=== PATIENT | male | born 1975 | race Caucasian/White ===

== ENCOUNTER 2021-06-10 12:23 | Emergency (ER) | payer BC, SELFPAY ==
[2021-06-10 12:24] VITALS: BP 149/102; PULSE 66; RESP 18; TEMP 36.2; O2SAT 95; BMI 31.7
--- NOTE | 2021-06-10 13:08 | RAD_ITS ---
STUDY: X-RAY - RIGHT ELBOW REASON FOR EXAM: Male, 46 years old. fall -- FALL ON THE ICE. SEVERE ELBOW PAIN TECHNIQUE: 2 view(s) of the elbow. COMPARISON: None. FINDINGS: Acute markedly comminuted nondisplaced fracture of the proximal metaphysis of the ulna just distal to the olecranon. Acute slightly distracted fracture of the anterior aspect of the radial head. Normal radiocapitellar and ulnotrochlear articulations. The soft tissue structures are unremarkable. RAD/Elbow 2 Views IMPRESSION: 1. Acute markedly comminuted fracture the proximal metaphysis of the ulna just distal to the olecranon. 2. Acute slightly distracted oblique fracture of the anterior aspect of the radial head appears Electronically Signed: Peter Rosa MD at 13:45 EST Tel , Service support ,
--- NOTE | 2021-06-10 13:08 | RAD_ITS ---
STUDY: X-RAY - RIGHT RADIUS AND ULNA REASON FOR EXAM: Male, 46 years old. fall, elbow pain TECHNIQUE: 2 view(s) of the forearm. COMPARISON: None. FINDINGS: There is no demonstrated soft tissue swelling. Acute slightly displaced oblique fracture of the anterior aspect of the radial head. Acute markedly comminuted fracture of the proximal metaphysis of the ulna just distal to the olecranon. RAD/Forearm 2 Views IMPRESSION: 1. Acute markedly comminuted fracture the proximal metaphysis of the ulna. 2. Acute slightly displaced oblique fracture the anterior aspect of the radial head. Electronically Signed: Peter Rosa MD at 13:46 EST Tel , Service support ,
[2021-06-10] MEDS: HYDROcodone Bitartrate/Apap 5/325 Tablet PO (13:33)
[2021-06-10] MEDS: morphine 10 MG/ML Syringe IM (14:30)
--- NOTE | 2021-06-10 15:43 | EDS_ITS ---
HPI History of Present Illness Chief Complaint: Fall Informant: patient Onset/Context/Timing Onset: Today Mechanism/Context: Fall Location of pain/injuries: Right elbow Current Severity: Moderate Maximum Severity: Moderate Narrative Narrative: Patient presents after fall at home. He fell on icy steps. His right elbow hit the edge of the steps. He has pain to the right elbow and forearm. He denies any other injury from the fall. He is right-hand dominant. PFSH PFSH no medical history Home Medications oxycodone-acetaminophen [Percocet] 1 tab PO Q4H PRN 5 Days #30 tab 06/10/21 [Rx Last Taken Unknown] Allergy/AdvReac Type Severity Reaction Status Date / Time No Known Allergies Allergy Verified 06/10/21 12:25 Social History Smoking Status: Never smoker ROS ROS ED Constitutional Constitutional ED: Denies chills or fever(s) Eyes Eyes: Denies change in vision ENT ENT ED: Denies sore throat Cardiovascular Cardiovascular: Denies chest pain Respiratory/Chest Respiratory/Chest: Denies cough or dyspnea Gastrointestinal Gastrointestinal: Denies abdominal pain, nausea or vomiting Genitourinary Genitourinary ED: Denies dysuria Musculoskeletal Musculoskeletal: Reports arthralgias; Denies back pain or neck pain Integumentary Denies rash Neurologic Neurologic: Denies headache(s), paresthesias or weakness Allergic/Immunologic Allergic/Immunologic ED: Denies urticaria EXAM Physical Exam Const Vital Signs: 06/10/21 12:24 06/10/21 13:25 Temperature 97.1 F L Temperature Source Temporal Pulse Rate 66 Respiratory Rate 18 Respiratory Effort Normal Respiratory Depth Normal Respiratory Pattern Normal Blood Pressure 149/102 H Blood Pressure Mean 117 Pulse Ox 95 Oxygen Delivery Method Room Air Room Air Positive well nourished and well developed General Appearance ED: well developed HEENT atraumatic Eyes PERRL and EOMs intact bilaterally Neck full ROM Chest Wall inspection of chest normal and palpation of chest normal Resp normal respiratory effort and clear to auscultation bilaterally Cardio regular rhythm Rate: regular rate GI non-tender Palpation: soft Extremity Extremity Narrative: Tenderness diffusely around the right elbow and proximal forearm. Palpable distal pulses with good cap refill and sensation. Able to wiggle fingers. No tenderness at the shoulder. Decreased range of motion at the elbow secondary to pain. Neuro oriented x3 Sensorium / Orientation: alert Psych mental status grossly normal Skin no rashes or lesions noted MDM MDM MDM Narrative Medical decision making narrative: Patient given [place] for pain. X-rays of the elbow and forearm obtained. Radiography Diagnostic Testing: Clinical Impression(s) from Imaging Studies Elbow X-Ray 06/10/21 13:08 IMPRESSION: 1. Acute markedly comminuted fracture the proximal metaphysis of the ulna just distal to the olecranon. 2. Acute slightly distracted oblique fracture of the anterior aspect of the radial head appears Electronically Signed: Peter Rosa MD at 13:45 EST Tel , Service support , Forearm X-Ray 06/10/21 13:08 IMPRESSION: 1. Acute markedly comminuted fracture the proximal metaphysis of the ulna. 2. Acute slightly displaced oblique fracture the anterior aspect of the radial head. Electronically Signed: Peter Rosa MD at 13:46 EST Tel , Service support , Treatment and Re-Evaluation Comments:: X-rays reveal proximal radius and ulna fracture. X-rays reviewed with the patient. Patient given IM morphine and sweatshirt able to be removed. Patient placed in a long posterior and sugar-tong Ortho-Glass splint. Following splint application patient has good cap refill distally can wiggle fingers. I spoke with Dr. Bart Acuña, on-call for orthopedics. He asked that the patient follow-up with Dr. Connelly as he has training in more high risk upper extremity injuries. Prescription for Percocet sent to the pharmacy. Return instructions provided. Discharge Plan Triage Chief Complaint: Fall ED Provider: Renae Cruz Dx/Rx/DC Orders Clinical Impression: Elbow fracture, right Instructions: ED Elbow Fracture Prescriptions: New oxycodone-acetaminophen [Percocet] 5-325 mg tablet 1 tab PO Q4H PRN (Reason: pain) 5 Days Qty: 30 RF: 0 Primary Care Provider: Care Physician,No Primary Referrals: Stan Connelly DO [STAFF PHYSICIAN] - 3-5 Days Care Physician,No Primary [Primary Care Provider] - Disposition Disposition: Home, Self Care Discharge Date/Time: 06/10/21 15:55
== END 2021-06-10 15:55 | disposition home or self-care (01) ==
PROVIDERS: Emergency Provider Emergency Medicine; Visit Provider Emergency Medicine
DX: S42.401A Unspecified fracture of lower end of right humerus, initial encounter for closed fracture (principal); W10.9XXA Fall (on) (from) unspecified stairs and steps, initial encounter
CPT/HCPCS: 29105; 73070; 73090; 96372; 99282

== ENCOUNTER 2021-06-14 07:33 | Outpatient (CLI) | payer BC, SELFPAY ==
--- NOTE | 2021-06-14 08:14 | CT_ITS ---
STUDY: CT SCAN UPPER EXTREMITY RIGHT REASON FOR EXAM: Male, 46 years old. PRE RADIATION DOSAGE (If Supplied By Facility): CTDIvol = ( 24.58 ) mGy, DLP = ( 431.54 ) mGycm. Individualized dose optimization techniques were used for this CT.? TECHNIQUE: Multiple axial tomographic images of the right elbow were obtained without intravenous contrast demonstration. Coronal and sagittal reconstructions obtained as well. COMPARISON: Comparison is made with prior radiographs dated genera 2021. FINDINGS: There is evidence of a comminuted nondisplaced fracture of the proximal metaphysis of the ulna just distal to the olecranon process of the ulna. There is also evidence of a slightly distracted fracture of the anterior aspect of the radial head. Diffuse soft tissue swelling and joint effusion. CT/Extremity Upper without Contra IMPRESSION: Comminuted nondisplaced fracture of the proximal metaphysis of the ulna just distal to the olecranon process. Slightly distracted fracture of the anterior aspect of the radial head. Soft tissue swelling and joint effusion. Electronically Signed: Brian Pulido MD at 9:31 EST ,
== END 2021-06-14 23:59 | disposition short-term general hospital (02) ==
PROVIDERS: Referring Provider Student in an Organized Health Care Education/Training Program; Visit Provider Student in an Organized Health Care Education/Training Program
DX: S52.121A Displaced fracture of head of right radius, initial encounter for closed fracture (principal); S52.021A Displaced fracture of olecranon process without intraarticular extension of right ulna, initial encounter for closed fracture
CPT/HCPCS: 73200

== ENCOUNTER 2021-06-21 09:18 | Day surgery (SDC) | payer BC, SELFPAY ==
--- NOTE | 2021-06-14 07:53 | RAD_ITS ---
INDICATION: PRE OP EXAMINATION/TECHNIQUE: X-RAY - XR Chest 2 Views COMPARISON: No prior chest imaging. FINDINGS: LINES/DEVICES: None. LUNGS: Symmetric normal lung volumes. No airspace opacity or abnormal interstitial pattern. No nodule or mass. No pleural effusion or pneumothorax. MEDIASTINUM AND CARDIOVASCULAR STRUCTURES: Normal size and contour of the cardiomediastinal silhouette. No evidence of pulmonary vascular congestion. BONES AND SOFT TISSUES: No abnormality within limits of the exam. RAD/Chest PA and Lateral IMPRESSION: 1. No radiographic evidence of acute cardiopulmonary disease. Electronically Signed: Bhupendra Spaulding DO at 20:46 EST ,
--- NOTE | 2021-06-14 07:54 | EKG12_ITS ---
Test Reason : PREOP Blood Pressure : / mmHG Vent. Rate : 111 BPM Atrial Rate : 111 BPM P-R Int : 148 ms QRS Dur : 086 ms QT Int : 334 ms P-R-T Axes : 019 -23 -03 degrees QTc Int : 454 ms Sinus tachycardia Otherwise normal ECG Confirmed by TANYA PINON, DEMETRIS ([id number]), editor sound CHARLEE BARAJAS ([id number]) on 06/15/2021 1:00:43 PM Referred By: Stan Connelly Confirmed By:JONE MARTÍNEZ MD
[2021-06-14 09:46] LABS: Absolute Lymphocyte Count 1.43 X10^3/uL (0.83-4.51); Absolute Neutrophil Count 9.2 X10^3/uL (2.0-7.7); Basophil# 0.03 X10^3/uL; Basophil% 0.3 % (0-1); Eosinophil# 0.07 X10^3/uL; Eosinophils% 0.6 % (0-5); Hematocrit 43.5 % (40-54); Hemoglobin 14.8 g/dL (13.0-16.5); Lymphocyte # 1.43 X10^3/ul (0.83-4.51); Lymphocyte % 12.4 % (19-41); Mean Corpuscular Hgb 29.7 pg (27.0-32.0); Mean Corpuscular Volume 87.3 fL (80-94); Mean Platelet Vol. 10.4 fl (6.2-12.0); Monocyte% 6.1 % (0-10); NRBC Flagged by Analyzer 0 % (0-5); Neutrophil # 9.21 X10^3/uL (2.7-7.7); Neutrophil % 79.8 % (47-70); Platelet Count 265 K/mm3 (150-450); RBC Distribution Width CV 12.6 % (11.6-14.6); RBC Distribution Width SD 39.8 fl (35.1-43.9); Red Blood Count 4.98 M/mm3 (4.6-6.2); White Blood Count 11.5 K/mm3 (4.4-11.0)
[2021-06-14 09:53] LABS: Partial Thromboplast Time 29.6 Seconds (24.1-36.2); Prothrombin Time (Protime)PT. 12.8 SECONDS (11.7-14.9)
[2021-06-14 10:24] LABS: Anion Gap 8 (5-15); BUN 20 mg/dL (7-18); BUN/Creat Ratio 17.4 RATIO (10-20); Chloride 107 mmol/L (98-107); Creatinine, Serum 1.15 mg/dL (0.70-1.30); EST Glomerular Filtration Rate 72 mL/min (>60); Est Glom Filt Rate - Afr Amer 88 mL/min (>60); Glucose 124 mg/dL (74-106); Potassium 3.3 mmol/L (3.5-5.1); Sodium Level 139 mmol/L (136-145)
[2021-06-21 09:50] VITALS: BP 164/99; PULSE 93; RESP 18; TEMP 36.9; O2SAT 98; BMI 35.2
[2021-06-21] MEDS: Lactated Ringers 1,000 ML 15 ML IV ×2 (10:03→16:03)
[2021-06-21] MEDS: Cefazolin 2 GM in 0.9% Normal Saline 100 ML IV (12:48)
--- NOTE | 2021-06-21 12:50 | RAD_ITS ---
STUDY: X-RAY - RIGHT ELBOW REASON FOR EXAM: Male, 46 years old. FX TECHNIQUE: 3 intraoperative view(s) of the elbow. COMPARISON: Comparison is made with prior examination dated 2021. FINDINGS: Intraoperative imaging provided for open reduction and internal fixation of the proximal ulnar fracture as well as the radial head fracture. There is good alignment. RAD/Elbow min 3 Views IMPRESSION: Intraoperative imaging provided for ORIF of the proximal ulnar fracture as well as the radial head fracture. There is good alignment. Electronically Signed: Brian Pulido MD at 15:30 EST ,
[2021-06-21 15:51] VITALS: BP 107/74; BP 164/90; PULSE 63; RESP 16; TEMP 37.1; O2SAT 95
[2021-06-21 16:00] VITALS: BP 122/85; BP 164/90; PULSE 87; RESP 16; O2SAT 95
--- NOTE | 2021-06-21 16:03 | PCM.DC ---
Discharge Instructions Follow Up Care Test Results: Test results from this visit will be discussed in further detail at your follow-up appointment, if applicable. Discharge Plan Admission Attending Provider: Stan Connelly Primary Care Provider: Care Physician,No Primary Instructions Additional Instructions / Restrictions: Follow preprinted instructions from your surgeon's office. Discharge Orders/Prescriptions Prescriptions: New oxycodone-acetaminophen [Percocet] 5-325 mg tablet 1 tab PO Q4H PRN (Reason: pain) 7 Days Qty: 42 RF: 0 No Action oxycodone-acetaminophen [Percocet] 5-325 mg tablet 1 tab PO Q4H PRN (Reason: pain) 5 Days Qty: 30 RF: 0 ibuprofen 200 mg Tablet 200 mg PO Q6H PRN (Reason: INFLAMATION) RF: 0 Referrals / Follow Up: Stan Connelly DO [STAFF PHYSICIAN] - Within 2 Weeks Care Physician,No Primary [Primary Care Provider] - Disposition Disposition (needs filled in before D/C Order can be placed): Home, Self Care
[2021-06-21 16:15] VITALS: BP 126/87; BP 164/90; PULSE 86; RESP 16; O2SAT 93
[2021-06-21 16:30] VITALS: BP 132/89; BP 164/90; PULSE 85; RESP 16; TEMP 37; O2SAT 94
[2021-06-21] MEDS: Acetaminophen 325 MG Tablet PO (16:49)
[2021-06-21] MEDS: oxyCODONE 5 MG Tablet PO (16:50)
[2021-06-21 17:23] VITALS: BP 138/101; BP 164/90; PULSE 101; RESP 16; TEMP 36.8; O2SAT 94
--- NOTE | 2021-06-21 19:32 | OP.PCM_ITS ---
Report of Operation Date of Procedure: 06/21/21 Description of Surgical Findings:: Preoperative diagnosis: Right elbow adult Monteggia variant fracture with comminuted proximal ulnar fracture, radial head fracture dislocation Postoperative diagnosis: Right elbow adult Montegg[place] variant fracture with comminuted proximal ulnar fracture, radial head fracture dislocation Procedure: 1. Open reduction internal fixation right proximal ulna 2. Open reduction internal fixation intra-articular radial head fracture Primary Surgeon: Stan Connelly DO Sales Representative [employer]: [employer] Anesthesia: General endotracheal with supraclavicular block Anesthesiologist: Dr. Mcdermott Estimated blood loss: 100 cc Urine output: None recorded IV fluids: Per anesthesia record Complications: None apparent Packing/drains: None Specimen: None Implants: [place] mini frag 2.0 mm 6-hole plate, 10 hole plate with cortical screws [place] 2.5 mm headless compression screws x2 length 20 mm and 26 mm [place] Variax 6-hole right olecranon plate with cortical and locking screws Preoperative indications: This is an otherwise healthy 46-year-old male seen in the outpatient setting after a fall directly onto his right elbow on ice on 06/10/2021. He was seen in the [facility] emergency department that day where x-rays confirmed a fracture. He was placed in a splint and referred to my office for follow-up. I saw the patient in the office on 06/11/2021. He was neurovascularly intact. X-rays and subsequent CT confirmed a Monteggia variant with a fracture dislocation of the radial head and comminuted proximal ulna fracture without intra-articular extension into the articular surface. Given the unstable nature, I recommended surgical intervention. I recommended open reduction internal fixation of the ulna, open reduction internal fixation versus arthroplasty of the radial head. The risks, benefits, terms procedure reviewed with the patient at length and he agreed to proceed. Risks included but were not limited to bleeding, infection, loss of life limb, need for additional surgery, instability, persistent pain, neurovascular injury, DVT or PE, wound complications, stiffness, nonhealing bone, delayed union. He expressed understanding his risk and wished to proceed with surgery. Description of procedure: Patient identified in the preoperative holding area by name, medical record number, and date of . The operative extremity was marked. All questions were answered to patient satisfaction. Informed consent was confirmed. A supraclavicular block was administered by the anesthesia staff prior to the procedure as well. At time of his procedure, patient brought to the operative suite and positioned supine a standard operating table. General anesthesia was induced and endotracheal tube placed. All bony prominences were well-padded. After adequate anesthesia and securing the tube, we positioned the patient in the lateral decubitus position with the right side up. An axillary roll was placed. Patient was held in position by beanbag. The fibular head was free in the down leg. We then positioned the operative elbow over a radiolucent post. We remove the splints. I applied a well-padded pneumatic tourniquet to the right upper arm. We then prepped and draped the right upper extremity in normal, sterile orthopedic fashion. 2 g Ancef was administered prior to the incision by the anesthesia staff. We then performed a timeout with all parties in attendance in agreement with the side, site, and operation to be performed. No concerns were voiced and elected proceed with surgery. I first exsanguinated the right upper extremity with an Esmarch bandage. Tourniquet was inflated to 250 mmHg remained up for 126 minutes. Esmarch was then removed. A standard posterior approach to the olecranon was then planned. Longitudinal incision curving slightly over the olecranon process was carried full-thickness down to the fascial layer with a 10 blade scalpel. Gelpi retractors were then placed. Hemostasis was achieved with Bovie cautery. Full-thickness flaps were developed. I then elevated the periosteum off the subcutaneous border of the ulna distally. Fracture was then identified. I continued subperiosteal elevation off the more proximal ulna to the level of the triceps insertion. Hematoma from the fracture was debrided. I thoroughly irrigated the fracture site. There was significant comminution of the ulna noted at this point. I attempted to provisionally reduce this with pointed reduction clamps. I was unable to hold these with K wires. I elected to place two 2.0 mm plates on both medial and lateral sides of the ulna to capture the comminution and hold the provisional reduction. I placed both Uni and bicortical cortical screws in these plates to purchase the larger comminuted portion of the ulna. I then selected a 6-hole olecranon plate which was secured to bone with cortical screws proximal and distal to the major fractures. There was a large coronoid piece which I was able to clamp to the bone using a pointed reduction clamp and secured with a well directed cortical screw. The ulna appeared to be nearly anatomic reduced with its length restored to anatomic length. I then turned my attention to the radius. I was unable to identify any radial fractures through the fracture of the ulna prior to reducing it. I then elevated the full-thickness flaps to the level of the lateral ulna. I then opened the lateral fascia in Niranjan's interval in between ECU and anconeus. I split the lateral ulnar collateral ligament in line with its fibers as well as the annular ligament. The radial head was identified. There is a approximately 30% fracture which was newly reduced of the articular segment of the head that could only be visualized with extreme supination. I was able to reduce this nearly anatomically and secured with K wires. I placed 2 headless compression screws to secure the fragment. There was an articular fragment that was not unreconstructable noted within the joint which was retrieved with a hemostat. I then took the elbow through range of motion and appeared stable. The radial capitellar joint did appear to have some subluxation in end range supination. I suspected this was due to the lateral ulnar collateral ligament not being repaired yet. I thoroughly irrigated the wounds. Final orthogonal fluoroscopy was performed. Tourniquet was deflated and hemostasis obtained with Bovie cautery. I then closed the LUCL watertight with a #2 FiberWire suture in running locking fashion. The investing fascia of the ulna was reapproximated over the plate with 0 Vicryl suture. Dermis was reapproximated buried 2-0 Vicryl suture. Skin was finally reapproximated with ani. Sterile compression dressing was applied. I then applied a well-padded fiberglass posterior splint in approximately 90 degrees of flexion in neutral forearm rotation. Patient was then repositioned in the supine position. He was safely extubated in the operative suite. He was transferred to his gurney and subsequently to PACU in stable condition. Postoperative plan: Follow-up in my office in 2 weeks for splint removal and early range of motion with x-rays out of the splint Oxycodone prescription provided Initiate aspirin 81 mg twice daily to start tomorrow for DVT prophylaxis Nonweightbearing to the operative extremity Initiate finger range of motion as soon as possible Ice to the operative site Written and verbal instructions provided
== END 2021-06-21 23:59 | disposition home or self-care (01) ==
LOC: SDC 09:19 → AC 09:19
PROVIDERS: Referring Provider Student in an Organized Health Care Education/Training Program; Visit Provider Student in an Organized Health Care Education/Training Program
PROC: (CPT 24635; principal; 2021-06-21 10:40)
DX: S52.271A Monteggia's fracture of right ulna, initial encounter for closed fracture (principal); S52.121A Displaced fracture of head of right radius, initial encounter for closed fracture; S52.021A Displaced fracture of olecranon process without intraarticular extension of right ulna, initial encounter for closed fracture; W00.0XXA Fall on same level due to ice and snow, initial encounter; W01.198A Fall on same level from slipping, tripping and stumbling with subsequent striking against other object, initial encounter; R03.0 Elevated blood-pressure reading, without diagnosis of hypertension; E66.8 Other obesity; Z68.35 Body mass index [BMI] 35.0-35.9, adult
CPT/HCPCS: 24635; 24665; 64415; 36415; 71046; 73080; 73200; 76000; 80048; 85025; 85610; 85730; 93005; C1713; J7120; J2405